=== PATIENT | female | born 1985 | race Asian ===

== ENCOUNTER 2017-08-22 11:01 | Inpatient (IN) | payer SELFPAY ==
[~2017-08-22] VITALS: Ht 165.1 cm; Wt 62.6 kg
[2017-08-25] MEDS ORDERED: MISOPROSTOL 25 MCG TAB ONE (01:21)
[2017-08-25] MEDS ORDERED: PREN1SGL25 PO (01:32)
[2017-08-25] MEDS ORDERED: LACTATED RINGERS 1,000 ML IV SCH (01:33)
[2017-08-25] MEDS ORDERED: FERR-252 PO (01:33)
[2017-08-25] MEDS ORDERED: NALBUPHINE HYDROCHLORIDE 10 MG/ML VIAL IVP PRN (01:35)
[2017-08-25] MEDS ORDERED: METHYLERGONOVINE 0.2 MG/ML AMP IM PRN ×2 (01:35→16:45)
[2017-08-25] MEDS ORDERED: CARBOPROST 250 MCG/ML AMP IM PRN (01:35)
[2017-08-25] MEDS ORDERED: PROMETHAZINE 25 MG/ML VIAL IVP PRN (01:35)
[2017-08-25] MEDS ORDERED: OXYTOCIN 10 UNITS/ML VIAL IM SCH (01:35)
[2017-08-25] MEDS ORDERED: MISOPROSTOL 25 MCG TAB VG PRN (01:35)
[2017-08-25] MEDS ORDERED: OXYTOCIN 20 UNITS in LACTATED RINGERS 1,000 ML IV PRN (01:40)
[2017-08-25 01:42] VITALS: BP 110/72
[2017-08-25 01:54] LABS: BASOPHILS % (AUTO) 0.4 % (0.0-2.0); EOSINOPHILS # (AUTO) 0.1 K/uL (0-0.4); EOSINOPHILS % (AUTO) 1.1 % (0.0-4.0); HEMATOCRIT 32.7 % (36-48); HEMOGLOBIN 10.9 g/dL (12.0-16.0); LYMPHOCYTES # (AUTO) 1.7 K/uL (2.5-16.5); MEAN CORPUSCULAR HEMOGLOBIN 31 pg (27-31); MEAN CORPUSCULAR HGB CONC 33 g/dL (33-37); MONOCYTES # (AUTO) 0.6 K/uL (0.8-1.0); MONOCYTES % (AUTO) 7.6 % (1.7-9.3); NEUTROPHILS # (AUTO) 5.2 K/uL (1.8-7.7); NEUTROPHILS % (AUTO) 68.9 % (42.2-75.2); PLATELET COUNT (AUTO) 157 K/uL (140-450); RED BLOOD CELL COUNT(AUTO) 3.47 MIL/uL (4.20-5.40); RED CELL DISTRIBUTION WIDTH 17.6 % (11.6-13.7); WHITE BLOOD COUNT (AUTO) 7.6 K/uL (4.8-10.8)
[2017-08-25 01:55] LABS: APPEARANCE,URINE CLEAR (CLEAR); BILIRUBIN,URINE NEGATIVE (NEGATIVE); BLOOD, URINE NEGATIVE (NEGATIVE); COLOR,URINE YELLOW (YELLOW); LEUKOCYTE ESTERASE ,URINE 1+ (NEGATIVE); NITRITE, URINE NEGATIVE (NEGATIVE); UGLUCOSE NEGATIVE (NEGATIVE)
[2017-08-25 02:11] LABS: ANION GAP 15.4 (8-16); CARBON DIOXIDE 24.5 mmol/L (21-32); CREATININE 0.6 mg/dL (0.6-1.3); POTASSIUM 3.9 mmol/L (3.5-5.1); TOTAL BILIRUBIN 0.3 mg/dL (0.0-1.0)
[2017-08-25] MEDS ORDERED: OXYTOCIN 20 UNITS/LR PREMIX 1,000 ML IV ONE (05:32)
[2017-08-25] MEDS ORDERED: BUPIVACAINE 0.125%/NS PREMIX 250 ML ONE (07:34)
[2017-08-25 08:21] LABS: RBC,URINE NONE SEEN /HPF (0-5); WBC,URINE 0-5 (RARE) /HPF (0-5)
--- NOTE | 2017-08-25 08:51 | NUR ---
PATIENT HAS BEEN SCREENED AND CATEGORIZED LOW NUTRITION RISK. PATIENT WILL BE SEEN WITHIN 7 DAYS OF ADMISSION. 08/31/[address]
[2017-08-25] MEDS ORDERED: OXYTOCIN 10 UNITS/ML VIAL ONE (15:01)
[2017-08-25] MEDS ORDERED: OXYTOCIN 10 UNITS/ML VIAL IM PRN (16:45)
[2017-08-25] MEDS ORDERED: oxyCODONE/APAP 5/325 MG 1 TAB TAB PO PRN (16:45)
[2017-08-25] MEDS ORDERED: BENZOCAINE/MENTHOL 20%-0.5% 60 GM CAN TP PRN (16:45)
[2017-08-25] MEDS ORDERED: TEMAZEPAM 15 MG CAP PO PRN (16:45)
[2017-08-25] MEDS ORDERED: MEASLES, MUMPS, AND RUBELLA 1 VIAL SQVAC PRN (16:45)
[2017-08-25] MEDS ORDERED: HYDROcodone/APAP 5/325 MG 1 TAB TAB PO PRN (16:45)
[2017-08-25] MEDS ORDERED: DOCUSATE SOD/SENNA 50/8.6 MG 1 TAB PO SCH (21:00)
[2017-08-26 06:28] LABS: HEMATOCRIT 27.7 % (36-48); HEMOGLOBIN 9.1 g/dL (12.0-16.0)
[2017-08-26] MEDS ORDERED: HYDROcodone/APAP 10/325 MG 1 TAB TAB PO PRN (12:05)
[2017-08-26] MEDS ORDERED: ONDANSETRON 4 MG TAB PO PRN (13:30)
[2017-08-26] MEDS: IBUPROFEN 800 MG TAB PO PRN (17:06)
[2017-08-27] MEDS ORDERED: IBUP-1801 PO (09:50)
[2017-08-27] MEDS: IBUPROFEN 800 MG TAB PO PRN ×2 (10:03→18:16)
== END 2017-08-27 22:41 | disposition home or self-care (01) | DRG 775 ==
LOC: MLD 08-25 00:05 → MFCC 08-25 21:20
PROVIDERS: ADMIT Obstetrics & Gynecology; ATTEND Obstetrics & Gynecology
PROC: 10907ZC Drainage of Amniotic Fluid, Therapeutic from Products of Conception, Via Natural or Artificial Opening (ICD-10-PCS; principal; 2017-08-25)
PROC: 0KQM0ZZ Repair Perineum Muscle, Open Approach (ICD-10-PCS; 2017-08-25)
PROC: 3E0P7VZ Introduction of Hormone into Female Reproductive, Via Natural or Artificial Opening (ICD-10-PCS; 2017-08-25)
PROC: 3E0R3BZ Introduction of Anesthetic Agent into Spinal Canal, Percutaneous Approach (ICD-10-PCS; 2017-08-25)
PROC: 00HU33Z Insertion of Infusion Device into Spinal Canal, Percutaneous Approach (ICD-10-PCS; 2017-08-25)
DX: O48.0 Post-term pregnancy (principal); Z37.0 Single live birth; O70.1 Second degree perineal laceration during delivery; Z3A.40 40 weeks gestation of pregnancy
CPT/HCPCS: 36415; 51702; 80053; 81001; 85018; 85025; 86592; 86886; 86900; 86901; 87086; 90707; 90715; C1758; J2590; J3490; J7120